=== PATIENT | female | born 1980 | race Caucasian/White ===

== ENCOUNTER 2018-11-07 09:43 | Inpatient (IN) | payer MEDICARE, MEDICAID | END 2018-11-08 10:35 | disposition still patient (30) | LOC: PAS IN 09:43 → ORTHO 4S 17:50 | PROC: 0RRK0JZ Replacement of Left Shoulder Joint with Synthetic Substitute, Open Approach (ICD-10-PCS; principal; 2018-11-07 13:42) | PROC: 0LS40ZZ Reposition Left Upper Arm Tendon, Open Approach (ICD-10-PCS; 2018-11-07 13:42) | DX: M19.012 Primary osteoarthritis, left shoulder (principal); M05.612 Rheumatoid arthritis of left shoulder with involvement of other organs and systems ==